=== PATIENT | female | born 1995 | race Caucasian/White ===

== ENCOUNTER 2024-11-26 14:13 | Outpatient (CLI) | payer OTHER, SELFPAY ==
--- NOTE | ~2024-11-26 | US_ITS ---
EXAMINATION: US OB <=14 wk fetus w TV DATE: 11/26/2024 15:00 INDICATION: Encounter for supervision of normal first trimester TECHNIQUE: Real-time pelvic ultrasound utilizing both a transvaginal and transabdominal probe was pe rformed. The interpreting radiologist was not present for the study. COMPARISON: None. FINDINGS: The uterus measures 8.3 x 5.2 x 6.2 cm. There is an intrauterine gestational sac. A yolk sac is iden tified. No definitive pole. The mean sac diameter measures 1.1 cm which correlates with an vale mated gestational age of 5 weeks and 1 days. The right ovary measures 3.8 x 2.4 x 3.1 cm. The left ovary measures 2.9 x 2.7 x 1.7 cm. 14 mm anecho ic likely corpus luteum cyst in the right ovary. There is a small amount of anechoic free fluid in th e cul-de-sac. IMPRESSION: 1. Single intrauterine gestational sac with yolk sac but no definitive pole yet apparent likely due to early stage of . Could consider short-term. Ultrasound to confirm viability an d for more definitive assessment for estimated gestational age. 2. Gestational age by ultrasound based upon an 11 mm mean sac diameter of 5 weeks 2 day(s) +/- 3 day (s) with ultrasound estimated date of delivery (JUAN DAVID) of 07/27/2025. Reviewed, dictated and finalized at location [facility] IMPRESSION: 1. Single intrauterine gestational sac with yolk sac but no definitive po le yet apparent likely due to early stage of . Could consider short-te rm. Ultrasound to confirm viability and for more definitive assessment fo r estimated gestational age. 2. Gestational age by ultrasound based upon an 11 mm mean sac diameter of 5 we eks 2 day(s) +/- 3 day(s) with ultrasound estimated date of delivery (JUAN DAVID) of 1 09/26/2024.
== END 2024-11-26 14:14 | disposition home or self-care (01) ==
LOC: MICIMG 14:17
DX: Z34.91 Encounter for supervision of normal pregnancy, unspecified, first trimester (principal); Z3A.01 Less than 8 weeks gestation of pregnancy
CPT/HCPCS: 76801; 76817